=== PATIENT | male | born 1945 ===

== ENCOUNTER 2017-07-31 08:28 | Emergency (ER) | payer MEDICARE ==
[2017-07-31 08:32] VITALS: BMI 28.2
[2017-07-31 08:35] VITALS: BP 139/78; PULSE 65; TEMP 97.8; O2SAT 100
--- NOTE | 2017-07-31 09:21 | C.PDOC ---
History Of Present Illness 72 y/o male sent to ED by PMD to have Vitamin K administered after abnormal lab results were noted yesterday. Patient states he had blood work 4 days ago and was called yesterday to come to ED for a shot. Patient reports he is on Coumadin , with recent dose increased from 5mg to 7mg 3 weeks ago. Patient denies any bleeding, weakness, SOB or any physical complaints. Time Seen by Provider: 07/31/17 08:51 Chief Complaint (Nursing): Abnormal Labs History Per: Patient History/Exam Limitations: no limitations Onset/Duration Of Symptoms: Days Current Symptoms Are (Timing): Still Present Past Medical History Reviewed: Historical Data, Nursing Documentation, Vital Signs Vital Signs: Last Vital Signs Temp 97.8 F 07/31/17 08:32 Pulse 65 07/31/17 08:32 Resp 18 07/31/17 10:14 BP 139/78 07/31/17 08:32 Pulse Ox 100 07/31/17 10:05 - Medical History PMH: Hypothyroidism Surgical History: Pacemaker Family History: States: No Known Family Hx - Social History Hx Alcohol Use: No Hx Substance Use: No - Immunization History Hx Tetanus Toxoid Vaccination: Yes Hx Influenza Vaccination: Yes Hx Pneumococcal Vaccination: Yes Review Of Systems Constitutional: Negative for: Fever, Chills Respiratory: Negative for: Shortness of Breath Gastrointestinal: Negative for: Nausea, Vomiting Skin: Negative for: Rash Neurological: Negative for: Weakness, Numbness Physical Exam - Physical Exam Appears: Non-toxic, No Acute Distress Skin: Warm, Dry, No Rash Head: Atraumatic, Normacephalic Eye(s): bilateral: Normal Inspection, EOMI Oral Mucosa: Moist Neck: Normal ROM, Supple Chest: Symmetrical Cardiovascular: Rhythm Regular, No Murmur Respiratory: Normal Breath Sounds, No Rales, No Rhonchi, No Wheezing Gastrointestinal/Abdominal: Soft, No Tenderness, No Guarding, No Rebound Extremity: Normal ROM, Capillary Refill (<2 seconds) Neurological/Psych: Oriented x3, Normal Speech ED Course And Treatment - Laboratory Results Result Diagrams: 07/31/17 09:28 07/31/17 09:28 Lab Interpretation: Abnormal O2 Sat by Pulse Oximetry: 100 (RA) Pulse Ox Interpretation: Normal Medical Decision Making Medical Decision Making: Labs reviewed. INR is 5.7. 10am Called Dr Grover and discussed lab findings. he states outpatient lab INR was 7.8. Today INR is 5.7. Dr Grover recommends no treatment at this time and for patient to follow up in office this Sunday. Discontinue Coumadin for few days. Discussed results with patient and provide copy of lab reports. Patient is stable for discharge. Disposition Counseled Patient/Family Regarding: Diagnosis, Need For Followup - Disposition Referrals: Minerva Grover MD [Staff Provider] - Disposition: HOME/ ROUTINE Disposition Time: 10:03 Condition: STABLE Additional Instructions: No coumadin until you have you blood checked again Follow up in the office with Dr Grover this Sunday08/04/17 May return to the ED for check or if any bleeding. Instructions: What to Do When Your INR Is Too High , Prothrombin Time (PT) Test and International Normalized Ratio (INR) Forms: [employer] (Slovenian) - POA Present On Arrival: None - Clinical Impression Clinical Impression: Elevated INR - PA / VET TECH / Resident Statement MD/DO has reviewed & agrees with the documentation as recorded. - Scribe Statement The provider has reviewed the documentation as recorded by the Rembertoibbecky Rosa All medical record entries made by the Shelly were at my direction and personally dictated by me. I have reviewed the chart and agree that the record accurately reflects my personal performance of the history, physical exam, medical decision making, and the department course for this patient. I have also personally directed, reviewed, and agree with the discharge instructions and disposition.
[2017-07-31 09:31] LABS: HEMOGLOBIN 9.5 g/dL (12.0-18.0); MEAN CELL VOLUME 78.8 fL (80.0-94.0); MEAN CORPUSCULAR HEMOGLOBIN 25.4 pg (27.0-31.0); MEAN CORPUSCULAR HGB CONC 32.2 g/dL (33.0-37.0); MEAN PLATELET VOLUME 8.5 fL (7.2-11.7); RBC 3.76 Mil/uL (4.40-5.90); RED CELL DISTRIBUTION WIDTH 17.5 % (11.5-14.5); WHITE BLOOD COUNT 4.5 K/uL (4.8-10.8)
[2017-07-31 09:45] LABS: ALBUMIN 3.6 g/dL (3.5-5.0); CALCIUM 8.4 mg/dl (8.6-10.4)
[2017-07-31 09:46] LABS: INR 5.7; PROTHROMBIN TIME 69.2 SECONDS (9.7-12.2)
[2017-07-31 10:15] VITALS: RESP 18
== END 2017-07-31 10:16 | disposition home or self-care (01) ==
LOC: C.ER 08:28
DX: R79.1 Abnormal coagulation profile (principal); Z79.01 Long term (current) use of anticoagulants

== ENCOUNTER 2018-09-09 13:12 | Outpatient (CLI) | payer MEDICARE | END 2018-09-09 13:13 | disposition home or self-care (01) | LOC: C.PAT 13:12 | DX: I25.10 Atherosclerotic heart disease of native coronary artery without angina pectoris (principal) ==